=== PATIENT | male | born 1940 | race African-American/Black ===

== ENCOUNTER → 2019-02-05 18:20 | Emergency (ER) | payer MEDICARE ==
[~2019-02-05 18:20] MED LIST: Bupivacaine 0.5% W/EPI SDV* 10 ML VIAL INJ ONE; Bupivacaine 0.5% W/EPI SDV* 30 ML VIAL INJ ONE; Lidocaine 2% EPI 1:200000 MPF* 10 ML VIAL INJ ONE; Lidocaine 2% w/ EPI 1:200,000* 20 ML VIAL INJ ONE
[2019-02-05 18:25] VITALS: BP 141/77
--- NOTE | 2019-02-05 18:42 | ED ---
Laceration/Wound HPI - HPI Summary HPI Summary: The patient is a 78 y/o M presenting to [facility] with a chief complaint of a sudden onset laceration to the left middle finger this afternoon. He reports that he was outside mowing the lawn when he tried to move something while it was still on, causing him to get cut by the blade on the left middle finger near the nail. He denies any numbness in the finger. The pain is currently rated 3/10 in severity. He states that the finger has not yet stopped bleeding, but he does not use any anticoagulants, although he has in the past. Hx of HTN ( Losartan). Nonsmoker, no EtOH, no substance use. 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 Time Seen by Provider: 02/05/19 18:36 Hx Obtained From: Patient Mechanism of Injury: Sharp/Blunt Trauma - online communications specialist blade Onset/Duration: Sudden Onset, Lasting Minutes, Still Present Aggravating: Nothing Alleviating: Nothing Timing: Constant Onset Severity: Mild Current Severity: Mild Pain Intensity: 3 Pain Scale Used: 0-10 Numeric - Allergy/Home Medications Allergies/Adverse Reactions: Allergies Allergy/AdvReac Type Severity Reaction Status Date / Time Penicillins Allergy Unknown Verified 02/05/19 18:23 Reaction Details PMH/Surg Hx/FS Hx/Imm Hx Endocrine/Hematology History: Denies: Hx Anticoagulant Therapy, Hx Diabetes Cardiovascular History: Reports: Hx Hypertension - Losartan Opthamlomology History: Reports: Hx Contacts or Glasses EENT History: Denies: Hx Deafness - Surgical History Surgical History: None Surgery Procedure, Year, and Place: cardiac bypass 2004 Infectious Disease History: No Infectious Disease History: Denies: Traveled Outside the [place] in Last 30 Days - Family History Known Family History: Positive: Hypertension - Social History Alcohol Use: None Hx Substance Use: No Substance Use Type: Reports: None Hx Tobacco Use: No Smoking Status (MU): Never Smoked Tobacco Review of Systems Positive: Other - laceration to the left middle finger with active bleeding Negative: Numbness - in left middle finger All Other Systems Reviewed And Are Negative: Yes Physical Exam - Summary Physical Exam Summary: Appearance: Well-appearing, Well-nourished, lying in bed comfortable Skin: Laceration over the pad of the right middle finger just past the edge of the nail with minimal active bleeding, Warm, dry, no obvious rash Eyes: sclera anicteric, no conjunctival pallor ENT: mucous membranes moist Neck: deferred Respiratory: No signs of respiratory distress Cardiovascular: Appears well perfused, pulses are nml Abdomen: deferred Musculoskeletal: Moving all 4 extremities without obvious discomfort Neurological: Awake and alert, mentation is normal, speech is fluent and appropriate Psychiatric: affect is normal, does not appear anxious or depressed Triage Information Reviewed: Yes Vital Signs On Initial Exam: Initial Vitals Temp Pulse Resp BP Pulse Ox 97.3 F 70 20 141/77 98 02/05/19 18:22 02/05/19 18:22 02/05/19 18:22 02/05/19 18:22 02/05/19 18:22 Vital Signs Reviewed: Yes Diagnostics - Vital Signs Vital Signs Temp Pulse Resp BP Pulse Ox 02/05/19 18:22 97.3 F 70 20 141/77 98 - Laboratory Lab Statement: Any lab studies that have been ordered have been reviewed, and results considered in the medical decision making process. Re-Evaluation - Re-Evaluation First Eval Re-Evaluation Time: 19:00 Comment: I discussed discharge with the patient following dressing instructions of the laceration. Laceration Repair Course/Dx - Course Course Of Treatment: The patient is a 78 y/o M presenting to [facility] with a chief complaint of a sudden onset laceration to the left middle finger near the nail this afternoon after being cut by a online communications specialist blade while it was still on. The laceration is still bleeding, but he denies numbness in the finger. Upon physical exam, the patient exhibits a laceration over the pad of the finger just past the edge of the nail with minimal active bleeding. I discussed the options of managing this wound and recommended digital anesthesia, irrigation, followed by closure to improve cosmetic and functional outcome, but to do the patient's fear of needles, he was reluctant to pursue that. Instead he will irrigate the wound and we will dress it with a nonadherent dressing and tube gauze. I asked him to leave this dressing on for the next 48 hours to allow initial healing and for the wound to start a scab up and explained how to change the dressing once it is time to do so on Saturday evening. The patient is comfortable with this approach and understands he may need to come back if he experiences complications such as infection. - Clinical Impression Provider Diagnoses: Finger laceration Discharge - Sign-Out/Discharge Documenting (check all that apply): Patient Departure - Patient will be discharged home. Patient Received Moderate/Deep Sedation with Procedure: No - Discharge Plan Condition: Stable Disposition: HOME Patient Education Materials: Finger Laceration (ED) Referrals: [facility] [Outside] - 7 Days Additional Instructions: Leave the current dressing on until Saturday evening. At that point I would like you to change it. You can cut off because carefully and then carefully tease off the nonadherent dressing overlying the laceration itself. Sometimes dampening the wound with a mix of peroxide and water can be helpful to get the dressing off without disturbing the scab. If you do end up having some bleeding , simply hold pressure on it for 5-10 minutes and then redress it with a snug dressing to continue pressure. If you have problems with that you can ice come back to the emergency department and we will take a look and do it is necessary. - Billing Disposition and Condition Condition: STABLE Disposition: Home - Attestation Statements Document Initiated by Destiney: Yes Documenting Scribe: Juhi Martel Provider For Whom Destiney is Documenting (Include Credential): Dr. Óscar Burks MD Scribe Attestation: I, Juhi Martel scribed for Dr. Óscar Burks MD on 02/06/19 at 1235. Scribe Documentation Reviewed: Yes Provider Attestation: The documentation as recorded by the Juhi sanchez accurately reflects the service I personally performed and the decisions made by me, Dr. Óscar Burks MD Status of Scribe Document: Viewed
== END | disposition home or self-care (01) ==
LOC: ED 18:20
DX: S61.213A Laceration without foreign body of left middle finger without damage to nail, initial encounter (principal); W28.XXXA Contact with powered lawn mower, initial encounter; Y93.H2 Activity, gardening and landscaping; Y92.007 Garden or yard of unspecified non-institutional (private) residence as the place of occurrence of the external cause; I10 Essential (primary) hypertension; Z88.0 Allergy status to penicillin; Z79.899 Other long term (current) drug therapy
CPT/HCPCS: 99281